=== PATIENT | female | born 1990 | race Two or more races ===

== ENCOUNTER → 2019-02-09 | Outpatient (CLI) | payer OTHER | END | disposition home or self-care (01) | LOC: PRENATAL 13:11 | DX: O35.3XX0 Maternal care for (suspected) damage to fetus from viral disease in mother, not applicable or unspecified (principal) ==

== ENCOUNTER 2019-06-11 12:46 | Emergency (ER) | payer OTHER ==
[~2019-06-11] VITALS: Ht 165.1 cm; Wt 76.2 kg
[2019-06-11] MEDS ORDERED: FOLBEE PLUS CZ1 EACH PO (13:53)
[2019-06-11] MEDS ORDERED: IRON325 MG PO (13:53)
[2019-06-11] MEDS ORDERED: NIX59 M1 TOP (18:58)
[2019-06-11] MEDS ORDERED: CLARITIN10 MG PO (18:58)
== END 2019-06-11 19:05 | disposition home or self-care (01) ==
LOC: ER 12:46
DX: O26.893 Other specified pregnancy related conditions, third trimester (principal); R21 Rash and other nonspecific skin eruption

== ENCOUNTER 2019-06-24 22:01 | Inpatient (IN) | payer OTHER ==
[~2019-06-24] VITALS: Ht 165.1 cm; Wt 76.2 kg
[~2019-06-24 22:01] MED LIST: CLARITIN10 MG PO; FOLBEE PLUS CZ1 EACH PO; IRON325 MG PO; NIX59 M1 TOP
[2019-06-25] MEDS ORDERED: PRENATAL 19 CH1 EAC1 PO (06:40)
== END 2019-06-27 17:15 | disposition home or self-care (01) | DRG 807 ==
LOC: OBS/DEL 22:01 → OB/GYN 06-25 05:51 → LDR 06-25 05:51 → OB/GYN 06-26 00:55
PROVIDERS: ADMIT Obstetrics & Gynecology
PROC: 10E0XZZ Delivery of Products of Conception, External Approach (ICD-10-PCS; principal; 2019-06-25)
PROC: 0UQMXZZ Repair Vulva, External Approach (ICD-10-PCS; 2019-06-25)
PROC: 0W8NXZZ Division of Female Perineum, External Approach (ICD-10-PCS; 2019-06-25)
PROC: 3E033VJ Introduction of Other Hormone into Peripheral Vein, Percutaneous Approach (ICD-10-PCS; 2019-06-25)
PROC: 4A1HXCZ Monitoring of Products of Conception, Cardiac Rate, External Approach (ICD-10-PCS; 2019-06-25)
DX: O70.0 First degree perineal laceration during delivery (principal); Z37.0 Single live birth; Z3A.39 39 weeks gestation of pregnancy